=== PATIENT | female | born 1965 | race Caucasian/White ===

== ENCOUNTER → 2016-10-26 | Outpatient (CLI) | payer MEDICAID | LOC: FIMAGING 08:52 | DX: Z12.31 Encounter for screening mammogram for malignant neoplasm of breast (principal) | CPT/HCPCS: G0202 ==

== ENCOUNTER 2018-12-01 16:50 | Inpatient (IN) | payer MEDICAID | END 2018-12-06 12:23 | disposition home or self-care (01) | LOC: F2W 21:12 ==